=== PATIENT | female | born 1995 | race Caucasian/White ===

== ENCOUNTER 2017-05-08 15:09 | Emergency (ER) | payer BC ==
[~2017-05-08 15:09] MED LIST: FAMO-63 PO; PRED20TA PO
[2017-05-08] MEDS ORDERED: IV NORMAL SALINE 1,000ML 1,000 ML IV SCH (15:27)
[2017-05-08] MEDS ORDERED: FAMOTIDINE 20 MG/2 ML VIAL IVP ONE (15:45)
[2017-05-08] MEDS ORDERED: methylPREDNISolone SOD SUCC PF 125 MG/2 ML VIAL. IV ONE (15:45)
[2017-05-08] MEDS ORDERED: diphenhydrAMINE 50 MG/ML VIAL IV ONE (15:45)
--- NOTE | 2017-05-08 16:10 | PHYS DOC ---
Past History Past Medical History: No Pertinent History Past Surgical History: No Surgical History Smoking: Non-smoker Alcohol Use: None Drug Use: None Adult General Chief Complaint Chief Complaint: ALLERGIC REACTION HPI HPI 21-year-old female patient state she ate some food that she believed it had cinnamon and she]/in his right elbow. 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 Review of Systems Review of Systems Constitutional: Denies fever or chills [] Eyes: Denies change in visual acuity, redness, or eye pain [] HENT: Denies nasal congestion or sore throat [] Respiratory: Denies cough or shortness of breath [] Cardiovascular: No additional information not addressed in HPI [] GI: Denies abdominal pain, nausea, vomiting, bloody stools or diarrhea [] : Denies dysuria or hematuria [] Musculoskeletal: Denies back pain or joint pain [] Integument: Reports rash[] Neurologic: Denies headache, focal weakness or sensory changes [] Endocrine: Denies polyuria or polydipsia [] All other systems were reviewed and found to be within normal limits, except as documented in this note. Current Medications Current Medications Current Medications Medications (Trade) Dose Ordered Sig/Robi Start Time Stop Time Status Last Admin Dose Admin Diphenhydramine HCl (Benadryl) 50 mg 1X ONCE 05/08/17 15:45 05/08/17 15:46 DC Famotidine (Pepcid Vial) 20 mg 1X ONCE 05/08/17 15:45 05/08/17 15:46 DC Methylprednisolone Sodium Succinate (SOLU-Medrol 125MG VIAL) 125 mg 1X ONCE 05/08/17 15:45 05/08/17 15:46 DC Sodium Chloride 1,000 ml @ 1,000 mls/hr Q1H 05/08/17 15:27 05/08/17 16:26 Allergies Allergies Allergies Coded Allergies Type Severity Reaction Last Updated Verified No Known Drug Allergies 07/30/14 No Physical Exam Physical Exam Constitutional: Well developed, well nourished, no acute distress, non-toxic appearance. [] HENT: Normocephalic, atraumatic, bilateral external ears normal, oropharynx moist, no oral exudates, nose normal. [] Eyes: PERRLA, EOMI, conjunctiva normal, no discharge. [] Neck: Normal range of motion, no tenderness, supple, no stridor. [] Cardiovascular:Heart rate regular rhythm, no murmur [] Lungs & Thorax: Bilateral breath sounds clear to auscultation [] Abdomen: Bowel sounds normal, soft, no tenderness, no masses, no pulsatile masses. [] Skin: 2 x 2 centimeter area of raised papular rash in the right elbow Back: No tenderness, no CVA tenderness. [] Extremities: No tenderness, no cyanosis, no clubbing, ROM intact, no edema. [] Neurologic: Alert and oriented X 3, normal motor function, normal sensory function, no focal deficits noted. [] Psychologic: Anxious, judgement normal, mood normal. 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 Patient did not have swelling of her throat or shortness of breath and had a stable vital signs and exam while she was in ER. Patient treated with IV fluid and Benadryl and Pepcid and Solu- Medrol and felt better. Patient instructed to follow with her primary care physician. discharge: I've spoken with the patient and/or caregivers. I've explained the patient's condition, diagnosis and treatment plan based on information available to me at this time. I've answered the patient's and/or caregivers questions and addressed any concerns. The patient and/or caregivers have a good understanding the patient's diagnosis, condition and treatment plan as can be expected at this point. Vital signs have been stabilized. The patient's condition is stable for discharge from the emergency department. The patient will pursue further outpatient evaluation with her primary care provider or other designated consulting physician as outlined in the discharge instructions. Patient and/or caregivers are agreeable to this plan of care and follow-up instructions have been explained in detail. The patient and/or caregivers have received these instructions in written format and expressed understanding of these discharge instructions. The patient and her caregivers are aware that if any significant change in condition or worsening of symptoms should prompt him to immediately return to this of the closest emergency department. If an emergent department is not readily available I would encourage him to call 911. Mega Disclaimer Mega Disclaimer This electronic medical record was generated, in whole or in part, using a voice recognition dictation system. Departure Departure: Impression: Primary Impression: Allergic reaction Disposition: HOME, SELF-CARE (at 1700) Condition: IMPROVED Referrals: PCP,UNKNOWN (PCP) Patient Instructions: Rash Additional Instructions: Drink plenty of liquids Follow-up with your primary care physician in 3-5 days Return to ER if not getting better Scripts Hydroxyzine Hcl (HYDROXYZINE HCL) 25 Mg Tablet 1 TAB PO TID Y for RASH, #30 TAB Prov: PEPE DUNBAR MD 05/08/17 PEPE DUNBAR MD May 08, 2017 16:10
[2017-05-08] MEDS ORDERED: HYDR25TA PO (16:59)
[2017-05-08 17:40] VITALS: BP 130/65
== END 2017-05-08 17:40 | disposition home or self-care (01) ==
LOC: ER 15:09
DX: T78.49XA Other allergy, initial encounter (principal); X58.XXXA Exposure to other specified factors, initial encounter
CPT/HCPCS: 96361; 96374; 96375; 99284; J1200; J2930; S0028; J7030